=== PATIENT | female | born 1985 | race Caucasian/White ===

== ENCOUNTER 2022-11-13 12:50 | Emergency (ER) | payer OTHER, SELFPAY ==
[2022-11-13 13:04] VITALS: BP 126/71; PULSE 90; RESP 18; TEMP 36.8; O2SAT 100
--- NOTE | 2022-11-13 13:10 | ED.GENADULT ---
HPI - General Adult General Chief complaint: Urogenital-Female Stated complaint: Female Urogenital Time Seen by Provider: 11/13/22 13:10 Source: patient Mode of arrival: ambulatory Limitations: no limitations History of Present Illness HPI narrative: 37-year-old female patient presents to the [facility] with complaints of burning with urination, white discharge, itchy and vaginal irritation. Patient states she has also had some urinary incontinence and having some spotting currently. Patient states she does have a history of pelvic floor dysfunction. Patient denies concerns for STDs due to the fact that she is in a nauseous relationship and is . Denies at this time. Patient states that her last menstrual period was October 16. Related Data Home Medications Medication Instructions Recorded Confirmed amitriptyline 10 mg tablet 10 mg PO DAILY 11/13/22 11/13/22 Allergies Allergy/AdvReac Type Severity Reaction Status Date / Time Sulfa (Sulfonamide AdvReac Intermediate Nausea and Verified 11/13/22 12:54 Antibiotics) Vomiting sulfamethoxazole AdvReac Intermediate Nausea and Verified 11/13/22 12:54 Vomiting trimethoprim AdvReac Intermediate Nausea and Verified 11/13/22 12:54 Vomiting DIPHENHYDRAMINE HCL AdvReac Severe HALLUCINATI Uncoded 11/13/22 12:54 ONS CYCLINES AdvReac Intermediate VISUAL Uncoded 11/13/22 12:54 DISTURBANCES Review of Systems Review of Systems: CONSTITUTIONAL: Denies fever, chills, or sweats. EYES: Denies visual changes, redness, or discharge. ENT: Denies rhinorrhea, congestion, sore throat, or otalgia. CARDIOVASCULAR: Denies chest pain, palpitations, or edema. RESPIRATORY: Denies cough or dyspnea. GASTROINTESTINAL: Denies abdominal pain, nausea, vomiting, or diarrhea. GENITOURINARY: positive dysuria or hematuria. positive vaginal discharge SKIN: Denies rash or itching. MUSCULOSKELETAL: Denies back pain, joint pain, or myalgia. NEUROLOGIC: Denies headache, numbness, or weakness. PSYCHIATRIC: Denies anxiety or depression. [facility] Past Medical History Medical History (Updated 11/13/22 @ 13:42 by KRISTINE Khan) Anxiety Pelvic floor dysfunction Surgical History Surgical History (Updated 11/13/22 @ 13:12 by KRISTINE Khan) Hx of cholecystectomy Comments At the time of my signature I agree with nursing past medical history, surgical, social, and family history. There is no relevant family history pertinent to the presenting complaint. Exam Narrative: GENERAL: Well-appearing, well-nourished, and in no acute distress. HEAD: Normocephalic, atraumatic. EYES: PERRLA and EOMI. ENT: Nares clear, no rhinorrhea or epistaxis. Mucous membranes moist. NECK: Supple. No lymphadenopathy CHEST: Clear to auscultation. No respiratory distress. HEART: Regular rate and rhythm. No murmur heard. Normal peripheral pulses. ABDOMEN: Soft, nontender, nondistended, normal active bowel sounds. : Normal external female genitalia. OS is closed. No adnexal fullness or TTP. No CVA tenderness to percussion. patient does have some bleeding noted during vaginal exam. Patient also has some yellowish to brown discharge with obvious odor noted. A sample was collected and sent to lab to test for bacterial vaginosis. EXTREMITIES: Normal range of motion. No edema. SKIN: Warm, dry, no rash. NEURO: No focal deficits. Alert and oriented x3. Course Course Level of Care: Express Care Visit Vital Signs Vital signs: Vital Signs Temperature 36.8 C 11/13/22 13:04 Pulse Rate 90 11/13/22 13:04 Respiratory Rate 18 11/13/22 13:04 Blood Pressure 126/71 11/13/22 13:04 Pulse Oximetry 100 11/13/22 13:04 Oxygen Delivery Room Air 11/13/22 13:04 Temperature 36.8 C 11/13/22 13:04 Pulse Rate 90 11/13/22 13:04 Respiratory Rate 18 11/13/22 13:04 Blood Pressure 126/71 11/13/22 13:04 Pulse Oximetry 100 11/13/22 13:04 Oxygen Delivery Room
== END 2022-11-13 13:47 | disposition home or self-care (01) ==
PROVIDERS: Emergency Provider Nurse Practitioner Family
DX: N76.0 Acute vaginitis (principal); R30.0 Dysuria
CPT/HCPCS: 81003; 81025; 87070; 87077; 87086; 87088; 99213; G0463